=== PATIENT | male | born 2000 | race Caucasian/White ===

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

== ENCOUNTER → 2023-10-26 | Outpatient (CLI) | payer BC ==
--- NOTE | 2023-10-26 19:48 | MR ---
EXAMINATION TYPE: MR knee LT wo con DATE OF EXAM: 10/26/2023 COMPARISON: None HISTORY: Left knee pain and swelling 12-16 months TECHNIQUE: Multiplanar, multisequence imaging of the left knee is performed without IV contrast. FINDINGS: There is no bone contusion or fracture. There is a small joint effusion. The cruciate and collateral ligaments are intact. There is a lateral discoid meniscus with marked abnormal signal intensity in the posterior horn, body and anterior horn consistent with complex tear of the lateral meniscus. The findings also suggests r aise the question of a bucket-handle tear of the lateral meniscus. The medial meniscus is intact. The quadriceps and patellar tendons are intact. IMPRESSION: 1. Markedly abnormal lateral meniscus consistent with complex tear involving the posterior horn, body and anterior horn of the meniscus, possibly a bucket-handle tear. 2. Configuration of the lateral meniscus suggests discoid meniscus. 3. No ligamentous injury. 4. No bone contusion or fracture. 5. Small joint effusion.
== END | disposition home or self-care (01) ==
LOC: RADMRIMAIN 16:26
PROVIDERS: ATTEND Family Medicine
DX: M25.462 Effusion, left knee (principal)

== ENCOUNTER 2024-03-05 18:10 | Emergency (ER) | payer BC ==
[2024-03-05 18:31] VITALS: RESP 18; TEMP 98.7
--- NOTE | 2024-03-05 19:47 | XR ---
EXAMINATION TYPE: XR knee complete LT DATE OF EXAM: 03/05/2024 7:40 PM COMPARISON: None CLINICAL INDICATION: Male, 24 years old with history of pain; TECHNIQUE: XR knee complete LT views submitted.. FINDINGS: No evidence of any acute osseous pathology, soft tissue swelling, or joint effusion is no deidra. IMPRESSION: 1. No acute osseous pathology. 2. Mild tricompartmental osteoarthritic changes. [facility], , 03/05/2024 7:45 PM
[2024-03-05] MEDS: IBUPROFEN 600 MG TAB PO STA (19:57)
--- NOTE | 2024-03-05 20:14 | ED ---
Lower Extremity Injury HPI - General Chief Complaint: Extremity Injury, Lower Stated Complaint: L knee pain Time Seen by Provider: 03/05/24 19:12 Source: patient Mode of arrival: ambulatory Limitations: no limitations - History of Present Illness Initial Comments: 24-year-old male presenting chief complaint of left knee pain. He reports that last week he fell down the last 3 steps of his apartment and hurt his knee. States that he has been trying to "walk it off" now the pain is getting worse and the knee is occasionally giving out. He denies any head injury loss of consciousness or blood thinners. Patient states that he does have history of a partial tear to his meniscus. No discoloration. No calf pain or lower leg swelling. No numbness or tingling. - Related Data Previous Rx's Medication Instructions Recorded Cyclobenzaprine [Flexeril] 5 mg PO BID PRN #10 tablet 01/30/20 Ibuprofen [Motrin] 600 mg PO Q8HR PRN #20 tab 01/30/20 Allergies Allergy/AdvReac Type Severity Reaction Status Date / Time No Known Allergies Allergy Verified 03/05/24 18:31 Review of Systems ROS Statement: Those systems with pertinent positive or pertinent negative responses have been documented in the HPI. ROS Other: All systems not noted in ROS Statement are negative. Past Medical History Past Medical History: No Reported History History of Any Multi-Drug Resistant Organisms: None Reported Past Surgical History: Tonsillectomy Past Psychological History: No Psychological Hx Reported Smoking Status: Vaper Past Alcohol Use History: Occasional Past Drug Use History: None Reported General Exam Limitations: no limitations General appearance: alert, in no apparent distress Head exam: Present: atraumatic, normocephalic, normal inspection Eye exam: Present: normal appearance, EOMI Neck exam: Present: normal inspection. Absent: meningismus Respiratory exam: Absent: respiratory distress Left Knee exam: Present: tenderness, swelling. Absent: full ROM, deformity Neurovascular tendon exam: Present: no vascular compromise Neurological exam: Present: alert, oriented X3 Psychiatric exam: Present: normal affect, normal mood Skin exam: Present: warm, dry, normal color Course Vital Signs 03/05/24 03/05/24 18:27 20:40 Temperature 98.7 F Pulse Rate 101 H 70 Respiratory 18 18 Rate Blood Pressure 143/84 116/67 O2 Sat by Pulse 100 97 Oximetry Medical Decision Making - Medical Decision Making Was pt. sent in by a medical professional or institution (, EVELIO, PRESSURE SUPERVISOR, urgent care, hospital, or halfway...) When possible be specific @ -No Did you speak to anyone other than the patient for history (EMS, parent, family, police, friend...)? What history was obtained from this source @ -No Did you review nursing and triage notes (agree or disagree)? Why? @ -I reviewed and agree with nursing and triage notes Were old charts reviewed (outside hosp., previous admission, EMS record, old EKG, old radiological studies, urgent care reports/EKG's, halfway records)? Report findings @ -No old charts were reviewed Differential Diagnosis (chest pain, altered mental status, abdominal pain women, abdominal pain men, vaginal bleeding, weakness, fever, dyspnea, syncope, headache, dizziness, GI bleed, back pain, seizure, CVA, palpatations, mental health, musculoskeletal)? @ -Differential Musculoskeletal Muscular strain, contusion, ligament sprain, fracture, arthritis, septic a rthritis, bursitis, cellulitis, muscle spasm, nerve compression, DVT, arterial occlusion, herpes zoster, electrolyte abnormality, tumor.... This is not meant to be in all inclusive list EKG interpreted by me (3pts min.). @ -As above X-rays interpreted by me (1pt min.). @ -X-ray shows no acute osseous pathology. Mild tricompartmental osteoarthritic changes CT interpreted by me (1pt min.). @ -None done U/S interpreted by me (1pt. min.). @ -None done What testing was considered but not performed or refused? (CT, X-rays, U/S, labs)? Why? @ -None What meds were considered but not given or refused? Why? @ -None Did you discuss the management of the patient with other professionals (professionals i.e. EVELIO Sutton, PRESSURE SUPERVISOR, lab, RT, psych nurse, social and human services assistant, higher education administrator, teacher, air antisubmarine officer, director of casework)? Give summary @ -No Was smoking cessation discussed for >3mins.? @ -No Was critical care preformed (if so, how long)? @ -No Were there social determinants of health that impacted care today? How? (Homelessness, low income, unemployed, alcoholism, drug addiction, transportation, low edu. Level, literacy, decrease access to med. care, intermediate, rehab)? @ -No Was there de-escalation of care discussed even if they declined (Discuss DNR or withdrawal of care, Hospice)? DNR status @ -No What co-morbidities impacted this encounter? (DM, HTN, Smoking, COPD, CAD, Cancer, CVA, ARF, Chemo, Hep., AIDS, mental health diagnosis, sleep apnea, morbid obesity)? @ -None Was patient admitted / discharged? Hospital course, mention meds given and route, prescriptions, significant lab abnormalities, going to OR and other pertinent info. @ -24-year-old male presenting with chief complaint of left knee pain. He injured his knee last week. He is neurovascularly intact. X-rays negative for acute osseous pathology. Patient is educated on today's findings. He is provided with a knee immobilizer and crutches advised to remain nonweightbearing and instructed to follow-up with orthopedics. Discharged. Follow-up with PCP. Report back to ER with any new or worsening symptoms. Discussed return parameters and answered all questions. Patient conveyed verbal understanding and agreed to the plan. I discussed this case in detail with my attending Dr. Christensen Undiagnosed new problem with uncertain prognosis? @ -No Drug Therapy requiring intensive monitoring for toxicity (Heparin, Nitro, Insu nicola, Cardizem)? @ -No Were any procedures done? @ -No Diagnosis/symptom? @ -Knee sprain Acute, or Chronic, or Acute on Chronic? @ -Acute Uncomplicated (without systemic symptoms) or Complicated (systemic symptoms)? @ -Uncomplicated Side effects of treatment? @ -No Exacerbation, Progression, or Severe Exacerbation? @ -No Poses a threat to life or bodily function? How? (Chest pain, USA, CT, pneumonia, PE, COPD, DKA, ARF, appy, cholecystitis, CVA, Diverticulitis, Homicidal, Suicidal, threat to staff... and all critical care pts) @ -Unlikely Disposition Clinical Impression: Knee sprain Disposition: HOME SELF-CARE Condition: Good Instructions (If sedation given, give patient instructions): Knee Sprain (ED) Additional Instructions: Follow-up with orthopedics. Report back to ER with any new or worsening symptoms. Take Motrin and Tylenol as needed for pain control. Rest, ice, compress, elevate the knee. Utilize knee immobilizer and remain nonweightbearing with your crutches Is patient prescribed a controlled substance at d/c from ED?: No Referrals: Av Bright MD [Primary Care Provider] - 1-2 days Sigrid Solis DO [Doctor of Osteopathic Medicine] - 1-2 days Time of Disposition: 20:14
[2024-03-05 20:42] VITALS: BP 116/67; PULSE 70
== END 2024-03-05 20:42 | disposition home or self-care (01) ==
LOC: EC 18:10
DX: S83.92XA Sprain of unspecified site of left knee, initial encounter (principal); F17.290 Nicotine dependence, other tobacco product, uncomplicated; W10.9XXA Fall (on) (from) unspecified stairs and steps, initial encounter
CPT/HCPCS: 73562; 99283; L1830 ×2